=== PATIENT | male | born 1995 | race Caucasian/White ===

== ENCOUNTER 2020-07-11 17:00 | Emergency (ER) | payer BC, SELFPAY ==
[2020-07-11 17:08] VITALS: BP 158/88; PULSE 89; RESP 20; TEMP 36.7; O2SAT 98
--- NOTE | 2020-07-11 17:16 | ED.EAR ---
HPI - Ear Problem General Chief complaint: Ear Stated complaint: left ear Time Seen by Provider: 07/11/20 17:17 Source: patient and RN notes reviewed History of Present Illness HPI Narrative: Patient is a 25-year-old male who presents the urgent care with complaints of left ear pain. Patient states that it started yesterday after cleaning his ears out with Q-tips. Patient has been using ofloxacin eardrops from his mother. Denies of any known fever, nausea, vomiting, any other upper respiratory symptoms. Patient is also use Tylenol as needed for the pain. No other acute complaints. No acute distress noted. Patient read the plan of care. Related Data Allergies Allergy/AdvReac Type Severity Reaction Status Date / Time No Known Allergies Allergy Unverified 06/01/18 10:32 Review of Systems Review of Systems: Narrative: CONSTITUTIONAL: Denies fever, chills, or sweats. EYES: Denies visual changes, redness, or discharge. ENT: Reports of left otalgia CARDIOVASCULAR: Denies chest pain, palpitations, or edema. RESPIRATORY: Denies cough or dyspnea. GASTROINTESTINAL: Denies abdominal pain, nausea, vomiting, or diarrhea. GENITOURINARY: Denies dysuria or hematuria. SKIN: Denies rash or itching. MUSCULOSKELETAL: Denies back pain, joint pain, or myalgia. NEUROLOGIC: Denies headache, numbness, or weakness. All other systems reviewed are negative, except as documented in HPI. PMFSH Comments At the time of my signature, I reviewed and agree with the nursing past medical, surgical, social, and family history. There is no relevant family history pertinent to the patient complaint. Exam Narrative: Exam Narrative: GENERAL: This is a well-nourished, well-developed patient, in no apparent distress. HEAD: normocephalic, atraumatic. EYES: PERRL. Sclera clear/white. Vision is grossly intact. EARS: External ears normal, moderate edema noted to the left external auditory canal with yellow drainage, auditory canals clear and without drainage, right TMs normal without perforation; left TM mildly injected, foggy with notable effusion. Hearing grossly intact. NOSE: External nose normal with no obvious nasal discharge, nares without redness, no rhinorrhea. THROAT: Mucous membranes moist, posterior pharynx clear. NECK: Neck supple, SKIN: warm, intact with no suspicious lesions or rash, good texture and turgor. NEURO: awake, alert, and oriented to person, place and time. There were no obvious focal neurologic abnormalities. EXTREMITIES: No clubbing, cyanosis, or edema. Course Vital Signs Vital signs: Vital Signs Temperature 98.1 F 07/11/20 17:08 Pulse Rate 89 07/11/20 17:08 Respiratory Rate 20 07/11/20 17:08 Blood Pressure 158/88 H 07/11/20 17:08 Pulse Oximetry 98 07/11/20 17:08 Temperature 98.1 F 07/11/20 17:08 Pulse Rate 89 07/11/20 17:08 Respiratory Rate 20 07/11/20 17:08 Blood Pressure 158/88 H 07/11/20 17:08 Pulse Oximetry 98 07/11/20 17:08 Reviewed-patient is informed that they may have pre-hypertension or hypertension based on a blood pressure reading in the department. I recommend the patient call the primary care provider listed on their discharge instructions or a physician of their choice this week to arrange follow-up for further evaluation of possible pre-hypertension or hypertension. Medical Decision Making MDM Narrative Medical decision making narrative: Advised the patient to use ibuprofen or Tylenol as needed for pain. Complete oral antibiotic regimen as prescribed. Use eardrops to the left ear as directed. May use a warm compress or ice pack to the ear for comfort. Do not put anything in the ears with the exception of the prescription eardrops, such as Q-tips, peroxide, water. If you develop any increase in pain associated with swelling?follow-up with your PCP or go to the ER. Follow-up with your PCP within 2 to 5 days or for worsening symptoms or failure to improve. Differential Diagnosis Differenti
== END 2020-07-11 17:30 | disposition home or self-care (01) ==
PROVIDERS: Emergency Provider Nurse Practitioner Family
DX: H60.92 Unspecified otitis externa, left ear (principal); H66.92 Otitis media, unspecified, left ear
CPT/HCPCS: 99213; G0463